=== PATIENT | female | born 1975 | race Asian ===

== ENCOUNTER 2020-06-29 09:39 | Emergency (ER) | payer BC ==
[~2020-06-29] VITALS: Ht 144.8 cm; Wt 44.5 kg
[2020-06-29] MEDS ORDERED: DONNATAL/LIDOCAINE/MAALOX 30 ML SUSP PO ONE (10:15)
[2020-06-29] MEDS ORDERED: BELLADONNA ALK/PHENOBARBITAL 5 ML UDC ONE (10:48)
[2020-06-29] MEDS ORDERED: MAGNESIUM/ALUMINUM/SIMETHICONE 30 ML UDC ONE (10:48)
[2020-06-29] MEDS ORDERED: LIDOCAINE VISC 2% SOLN 15 ML UDC ONE (10:48)
== END 2020-06-29 11:18 | disposition home or self-care (01) ==
LOC: FSED 10:15
DX: R09.89 Other specified symptoms and signs involving the circulatory and respiratory systems (principal); T18.128A Food in esophagus causing other injury, initial encounter
CPT/HCPCS: 80048; 80076; 81003; 85025; 99283